=== PATIENT | female | born 1965 | race American Indian/Alaskan Native ===

== ENCOUNTER 2017-08-04 06:39 | Day surgery (SDC) | payer OTHER ==
[2017-08-04 07:45] VITALS: O2SAT 100
[2017-08-04] MEDS ORDERED: Propofol 10 mg/ml Inj (20 ML) ONE (08:26)
--- NOTE | 2017-08-04 08:26 | CP.SDSHP ---
Same Day Surgery H & P - History Proposed Procedure: COLONSCOPY Pre-Op Diagnosis: SEE NOTES - Previous Medical/Surgical History Cardiac: Hypertension, ASHD/CAD Endocrine/Metabolic: Other Neuro: TIA/CVA, Backaches Previous Surgical History: COLON POLYP REMOVAL - Allergies Allergies: Allergies Penicillins Allergy (Intermediate, Verified 08/04/17 07:01) RASH - Physical Exam Vital Signs: Vital Signs 08/04/17 07:32 Temperature 97 F L Pulse Rate 61 Respiratory 19 Rate Blood Pressure 128/83 O2 Sat by Pulse 100 Oximetry Mental Status: Alert & Oriented x3 Neuro: WNL Heart: Other Lungs: WNL GI: Other - {Optional Preform as Required} Breast: WNL Abdomen: Other Rectal: Other Integument: WNL : WNL Ortho: Other ENT: WNL - Impression Pt. Evaluated Today:Candidate for Anesthesia & Procedure: Yes - Date & Time Time: 08:27 Short Stay Discharge - Short Stay Discharge Admitting Diagnosis/Reason for Visit: P/H/ COLON POLYPS Disposition: HOME/ ROUTINE
[2017-08-04] MEDS ORDERED: Lidocaine Hydrochloride 5 ML INJ ONE (08:27)
[2017-08-04 08:50] VITALS: TEMP 97.7
[2017-08-04] MEDS ORDERED: Belladonna-Phenobarbital PO ONE (09:15)
[2017-08-04 09:32] VITALS: RESP 12
[2017-08-04 10:34] VITALS: BP 122/66; PULSE 55
== END 2017-08-04 10:33 | disposition home or self-care (01) ==
LOC: C.ENDO 06:39
PROVIDERS: ATTEND Specialist
DX: K57.30 Diverticulosis of large intestine without perforation or abscess without bleeding (principal); Z86.010 Personal history of colon polyps; I10 Essential (primary) hypertension; I25.10 Atherosclerotic heart disease of native coronary artery without angina pectoris; K52.9 Noninfective gastroenteritis and colitis, unspecified; K64.8 Other hemorrhoids; Z86.73 Personal history of transient ischemic attack (TIA), and cerebral infarction without residual deficits; Z88.0 Allergy status to penicillin
CPT/HCPCS: 45380; 88305; J2704; J3010

== ENCOUNTER 2018-11-08 10:54 | Observation (INO) | payer OTHER ==
[2018-11-08 11:46] VITALS: BMI 46.3
--- NOTE | 2018-11-08 12:03 | CP.PCM.HP ---
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 Pt sent in from Neurologist office Dr Li. Reports her seizuires began 9in january, says she gets aura and jittery, pt has inbconsitent syncope- described as generalized tonic clonic last less than 3 min but remains aware of her experience. Reports fatigue and headache for 5 min after a seizure. Pt says her sister told her she bites her tongue sometimes during seizures, reports only one episode of bladder incontince during a seizure sometime last year. Pt has been following up in clinic with Dr Li, and today was told to come in for a 48hr video. ROS: Pos+ hx of seizures, hx of CVA, Neg- CP , SOB ,FC, NV, current seizures, numbness, tingling, weakness, recent sickness PMH: CVAx2, seizures, DM2, HTN, JOCELYNN, asthma, and vertigo PSH: denies Family History: Non-Contributory Social History: Denies any tobacco, alcohol or illicit drug use Allergies: Penicillin Home Medications: As per MAR Present on Admission - Present on Admission Any Indicators Present on Admission: No Review of Systems - Review of Systems All systems: reviewed and no additional remarkable complaints except (as per HPI) Past Patient History - Infectious Disease Hx of Infectious Diseases: None - Past Medical History & Family History Past Medical History?: Yes - Past Social History Smoking Status: Never Smoked - CARDIAC Hx Hypercholesterolemia: Yes Hx Hypertension: Yes - PULMONARY Hx Chronic Obstructive Pulmonary Disease (COPD): Yes (with residual RLE weakness) - NEUROLOGICAL Hx Dizziness: No - HEENT Hx HEENT Problems: No - RENAL Hx Chronic Kidney Disease: No - ENDOCRINE/METABOLIC Hx Diabetes Mellitus Type 2: Yes - HEMATOLOGICAL/ONCOLOGICAL Hx Blood Disorders: Yes - INTEGUMENTARY Hx Dermatological Problems: No - MUSCULOSKELETAL/RHEUMATOLOGICAL Hx Unsteady Gait: No - GASTROINTESTINAL Hx Gastrointestinal Disorders: Yes - GENITOURINARY/GYNECOLOGICAL Hx Genitourinary Disorders: No - PSYCHIATRIC Hx Psychophysiologic Disorder: No Hx Substance Use: No - SURGICAL HISTORY Hx Surgeries: Yes - ANESTHESIA Hx Anesthesia: Yes Hx Anesthesia Reactions: No Hx Malignant Hyperthermia: No Meds Allergies/Adverse Reactions: Allergies Allergy/AdvReac Type Severity Reaction Status Date / Time Penicillins Allergy Intermediate RASH Verified 08/04/17 07:01 Physical Exam - Constitutional Appears: Well, Non-toxic, No Acute Distress - Head Exam Head Exam: ATRAUMATIC, NORMAL INSPECTION - Eye Exam Eye Exam: EOMI, Normal appearance, PERRL Pupil Exam: NORMAL ACCOMODATION, PERRL - ENT Exam ENT Exam: Mucous Membranes Moist - Respiratory Exam Respiratory Exam: Clear to Auscultation Bilateral. absent: Rales, Rhonchi, Wheezes - Cardiovascular Exam Cardiovascular Exam: RRR, +S1, +S2 - GI/Abdominal Exam GI & Abdominal Exam: Normal Bowel Sounds. absent: Rigid, Tenderness - Extremities Exam Extremities exam: Positive for: pedal pulses present - Back Exam Back exam: NORMAL INSPECTION - Neurological Exam Neurological exam: Alert, CN II-XII Intact, Oriented x3, Reflexes Normal Additional comments: no nystagmus noted, no facial droop, no weakness - Psychiatric Exam Psychiatric exam: Normal Affect, Normal Mood - Skin Skin Exam: Normal Color, Warm Assessment & Plan - Assessment and Plan (Free Text) Assessment: 53F pmhx of CVAs and Seizures admitted for 48hr video EEG Plan: History of Seizures - Keppra 1500mg PO BID - Trileptal 300mg PO BID - 48hr EEG - Seizure precautions - Will continue to monitor - Neuro Dr Li consulted: f/u recs History of CVAs - ASA 81 daily - Plavix 75 daily - Crestor 10mg HS - Neurology Dr Li consulted - Flexeril 5mg daily PRN for myalgias History of DM2 - ISS-Low and Accuchecks ACHS - Metformin 500 BID - f/u Lipid panel and A1C History of Asthma -Duonebs Q6 PRN - will monitor Hx of HTN - Coreg 6.125 BID - norvasc 5 daily CK pgy1
[2018-11-08] MEDS ORDERED: Dextrose 50% SYRINGE Inj (50 ml) IV PRN (12:36)
[2018-11-08] MEDS ORDERED: Glucagon Recombinant 1 mg Inj IM PRN (12:36)
[2018-11-08] MEDS ORDERED: Albuterol-Ipratrop 3 mg / 0.5 (3 ml) UD INH PRN (13:01)
--- NOTE | 2018-11-08 14:55 | CP.PCM.CON ---
History of Present Illness - History of Present Illness History of Present Illness: Neurology consult for Miss ashton, Miss Ashton is a patient of mine from clinic who is here for video eeg admission as she was having increase in seizures at home. Miss Ashton states that her seizuires began 9in january, says she gets aura and jittery, pt has inbconsitent syncope- described as generalized tonic clonic last less than 3 min but remains aware of her experience. Reports fatigue and headache for 5 min after a seizure. Pt says her sister told her she bites her tongue sometimes during seizures, reports only one episode of bladder incontince during a seizure sometime last year. [facility]and has been compliant with her meds. ROS: Pos+ hx of seizures, hx of CVA, Neg- CP , SOB ,FC, NV, current seizures, numbness, tingling, weakness, recent sickness PMH: CVAx2, seizures, DM2, HTN, JOCELYNN, asthma, and vertigo PSH: denies Family History: Non-Contributory Social History: Denies any tobacco, alcohol or illicit drug use Allergies: Penicillin Home Medications: As per [facility] Neurology exam: AAOX3. PERRL. Cn 2-12 normal. EOMI Speech fluent. Can name and repeat. Motor: 5/5 sensory: intact ft, pin, Cerebellar: no dysmetria Gait normal. Review of Systems - Constitutional Constitutional: absent: As Per HPI, Anorexia, Chills, Daytime Sleepiness, Excessive Sweating, Fatigue, Fever, Frequent Falls, Headache, Increased Appetite, Lethargy, Malaise, Night Sweats, Snoring, Sleep Apnea, Weight Gain, Weight Loss, Weakness, Other - EENT Eyes: absent: As Per HPI, Blind Spots, Blurred Vision, Change in Vision, Decreased Night Vision, Diplopia, Discharge, Dry Eye, Exophthalmos, Floaters, Irritation, Itchy Eyes, Loss of Peripheral Vision, Pain, Photophobia, Requires Corrective Lenses, Sees Flashes, Spots in Vision, Tunnel Vision, Other Visual Disturbances, Loss of Vision, Other Ears: absent: As Per HPI, Decreased Hearing, Ear Discharge, Ear Pain, Tinnitus, Abnormal Hearing, Disequilibrium, Dizziness, Other Nose/Mouth/Throat: absent: As Per HPI, Epistaxis, Nasal Congestion, Nasal Discharge, Nasal Obstruction, Nasal Trauma, Nose Pain, Post Nasal Drip, Sinus Pain, Sinus Pressure, Bleeding Gums, Change in Voice, Dental Pain, Dry Mouth, Dysphagia, Halitosis, Hoarsness, Lip Swelling, Mouth Lesions, Mouth Pain, Odynophagia, Sore Throat, Throat Swelling, Tongue Swelling, Facial Pain, Neck Pain, Neck Mass, Other - Cardiovascular Cardiovascular: absent: As Per HPI, Acrocyanosis, Chest Pain, Chest Pain at Rest, Chest Pain with Activity, Claudication, Diaphoresis, Dyspnea, Dyspnea on Exertion, Edema, Irregular Heart Rhythm, Pain Radiating to Arm/Neck/Jaw, Leg Edema, Leg Ulcers, Lightheadedness, Orthopnea, Palpitations, Paroxysmal Nocturnal Dyspnea, Pedal Edema, Radiating Pain, Rapid Heart Rate, Slow Heart Rate, Syncope, Other - Respiratory Respiratory: absent: As Per HPI, Cough, Dyspnea, Hemoptysis, Dyspnea on Exertion, Wheezing, Snoring, Stridor, Pain on Inspiration, Chest Congestion, Excessive Mucous Production, Change in Mucous Color, Pain with Coughing, Other - Neurological Neurological: absent: As Per HPI, Abnormal Gait, Abnormal Hearing, Abnormal Movements, Abnormal Speech, Behavioral Changes, Burning Sensations, Confusion, Convulsions, Disequilibrium, Dizziness, Numbness, Focal Weakness, Frequent Falls, Headaches, Lack of Coordination, Loss of Vision, Memory Loss, Paresthesias, Radicular Pain, Restless Legs, Sensory Deficit, Syncope, Tingling, Tremor, Vertigo, Weakness, Other Visual Disturbances, Other Past Patient History - Infectious Disease Hx of Infectious Diseases: None - Past Medical History & Family History Past Medical History?: Yes - Past Social History Smoking Status: Never Smoked - CARDIAC Hx Hypercholesterolemia: Yes Hx Hypertension: Yes - PULMONARY Hx Chronic Obstructive Pulmonary Disease (COPD): Yes (with residual RLE weakness) - NEUROLOGICAL Hx Dizziness: No - HEENT Hx HEENT Problems: No - RENAL Hx Chronic Kidney Disease: No - ENDOCRINE/METABOLIC Hx Diabetes Mellitus Type 2: Yes - HEMATOLOGICAL/ONCOLOGICAL Hx Blood Disorders: Yes - INTEGUMENTARY Hx Dermatological Problems: No - MUSCULOSKELETAL/RHEUMATOLOGICAL Hx Unsteady Gait: No - GASTROINTESTINAL Hx Gastrointestinal Disorders: Yes - GENITOURINARY/GYNECOLOGICAL Hx Genitourinary Disorders: No - PSYCHIATRIC Hx Psychophysiologic Disorder: No Hx Substance Use: No - SURGICAL HISTORY Hx Surgeries: Yes - ANESTHESIA Hx Anesthesia: Yes Hx Anesthesia Reactions: No Hx Malignant Hyperthermia: No Meds Allergies/Adverse Reactions: Allergies Allergy/AdvReac Type Severity Reaction Status Date / Time Penicillins Allergy Intermediate RASH Verified 08/04/17 07:01 - Medications Medications: Current Medications Albuterol/Ipratropium (Duoneb 3 Mg/0.5 Mg (3 Ml) Ud) 3 ml INH RQ6 PRN PRN Reason: Shortness of Breath Amlodipine Besylate (Norvasc) 5 mg PO DAILY [facility] Aspirin (Aspirin Chewable) 81 mg PO DAILY [facility] Carvedilol (Coreg) 6.25 mg PO BID [facility] Clopidogrel Bisulfate (Plavix) 75 mg PO DAILY [facility] Cyclobenzaprine HCl (Flexeril) 5 mg PO DAILY PRN PRN Reason: Muscle spasm Dextrose (Dextrose 50% Inj) 0 ml IV STAT PRN; Protocol PRN Reason: Hypoglycemia Protocol Dextrose (Glutose 15) 0 gm PO ONCE PRN; Protocol PRN Reason: Hypoglycemia Protocol Ferrous Sulfate (Feosol) 325 mg PO DAILY [facility] Glucagon (Glucagen Diagnostic Kit) 0 mg IM STAT PRN; Protocol PRN Reason: Hypoglycemia Protocol Dextrose (Dextrose 5% In Water 1000 Ml) 1,000 mls @ 0 mls/hr IV .Q0M PRN; Protocol PRN Reason: Hypoglycemia Protocol Insulin Human Regular (Novolin R) 0 unit SC ACHS [facility]; Protocol Levetiracetam (Keppra) 1,500 mg PO BID [facility] Meclizine HCl (Antivert) 25 mg PO BID PRN PRN Reason: Nausea/Vomiting Metformin HCl (Glucophage) 500 mg PO BIDCC [facility] Oxcarbazepine (Trileptal) 300 mg PO BID [facility] Ranolazine (Ranexa) 500 mg PO BID [facility] Rosuvastatin Calcium (Crestor) 10 mg PO HS [facility] Results - Vital Signs Recent Vital Signs: Last Vital Signs Temp 98.0 F 11/08/18 12:00 Pulse 78 11/08/18 12:00 Resp 18 11/08/18 12:00 BP 131/80 11/08/18 12:00 Pulse Ox 100 11/08/18 12:00 - Labs Labs: Laboratory Results - last 24 hr 11/08/18 12:55 POC Glucose (mg/dL) 93 Assessment & Plan - Assessment and Plan (Free Text) Assessment: 53 yr old woman with 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 I have admitted her for evaluation of these events and possibel increase in interictal discharges. Plan: 1. VEEG 24 hours 2. continue all meds 3. Seizure precautions. Thank you Dr. Li Neurology
[2018-11-08 17:30] LABS: HDL CHOLESTEROL 53 mg/dL (30-70)
[2018-11-08 17:42] LABS: LDL CHOLESTEROL 48 mg/dL (0-129)
[2018-11-08] MEDS: Ranolazine 500 mg Extended Release Tablets PO SCH (18:20)
[2018-11-08] MEDS: (Novolin R) Insulin Human Regular 100 units/ml vial SC SCH ×2 (20:38→21:38)
[2018-11-09 06:42] LABS: INR 1.1; PROTHROMBIN TIME 11.5 SECONDS (9.7-12.2)
[2018-11-09 07:14] LABS: ALB/GLOB RATIO 1.4 (1.0-2.1); ALBUMIN 3.3 g/dL (3.5-5.0); BLOOD UREA NITROGEN 16 mg/dL (7-17); CALCIUM 8.5 mg/dl (8.6-10.4); GFR NON-AFRICAN AMERICAN > 60
[2018-11-09 07:19] LABS: ALT/SGPT < 6 U/L (9-52); AST/SGOT 31 U/L (14-36)
[2018-11-09 07:26] LABS: HEMOGLOBIN 7.9 g/dL (11.0-16.0); MEAN CELL VOLUME 69.7 fL (81.0-99.0); MEAN CORPUSCULAR HEMOGLOBIN 21.3 pg (27.0-31.0); MEAN CORPUSCULAR HGB CONC 30.5 g/dL (33.0-37.0); MEAN PLATELET VOLUME 7.9 fL (7.2-11.7); RBC 3.69 Mil/uL (3.80-5.20); RED CELL DISTRIBUTION WIDTH 17.3 % (11.5-14.5)
[2018-11-09] MEDS: (Novolin R) Insulin Human Regular 100 units/ml vial SC SCH ×2 (07:41→11:37)
[2018-11-09 08:00] VITALS: RESP 20; TEMP 97.9; O2SAT 95
[2018-11-09] MEDS: Ranolazine 500 mg Extended Release Tablets PO SCH (09:47)
[2018-11-09 09:53] VITALS: BP 126/92
[2018-11-09 09:57] LABS: MONO # 0.3 K/uL (0.0-0.8); NEUT # 3.5 K/uL (1.8-7.0)
[2018-11-09 09:58] LABS: BASO # 0.1 K/uL (0.0-0.2); EOS # 0.1 K/uL (0.0-0.7)
[2018-11-09 13:07] VITALS: PULSE 79
--- NOTE | 2018-11-09 14:21 | CP.PCM.DIS ---
Provider - Provider Date of Admission: 11/08/18 10:54 Attending physician: Jefe Rose Jr, MD Consults: 11/08/18 11:53 Neurology Consult Routine Comment: Consulting Provider: Daniel Li Consulting Physician: Daniel Li Reason for Consult: seizure disorder Time Spent in preparation of Discharge (in minutes): 180 Diagnosis - Discharge Diagnosis (1) History of seizure Status: Chronic (2) History of CVA (cerebrovascular accident) Status: Chronic (3) Asthma Status: Chronic Priority: Medium (4) Diabetes mellitus Status: Chronic Priority: Medium (5) HTN (hypertension) Status: Chronic Priority: Medium Hospital Course - Lab Results Lab Results: Most Recent Lab Values WBC 6.0 K/uL (4.8-10.8) 11/09/18 06:19 RBC 3.69 Mil/uL (3.80-5.20) L 11/09/18 06:19 Hgb 7.9 g/dL (11.0-16.0) L 11/09/18 06:19 Hct 25.7 % (34.0-47.0) L 11/09/18 06:19 MCV 69.7 fL (81.0-99.0) L 11/09/18 06:19 MCH 21.3 pg (27.0-31.0) L 11/09/18 06:19 MCHC 30.5 g/dL (33.0-37.0) L 11/09/18 06:19 RDW 17.3 % (11.5-14.5) H 11/09/18 06:19 Plt Count 335 K/uL (130-400) 11/09/18 06:19 MPV 7.9 fL (7.2-11.7) 11/09/18 06:19 Neut % (Auto) 58.0 % (50.0-75.0) 11/09/18 06:19 Lymph % (Auto) 33.0 % (20.0-40.0) 11/09/18 06:19 [place] % (Auto) 5.0 % (0.0-10.0) 11/09/18 06:19 Eos % (Auto) 2.0 % (0.0-4.0) 11/09/18 06:19 Baso % (Auto) 2.0 % (0.0-2.0) 11/09/18 06:19 Neut # (Auto) 3.5 K/uL (1.8-7.0) 11/09/18 06:19 Lymph # (Auto) 2.0 K/uL (1.0-4.3) 11/09/18 06:19 [place] # (Auto) 0.3 K/uL (0.0-0.8) 11/09/18 06:19 Eos # (Auto) 0.1 K/uL (0.0-0.7) 11/09/18 06:19 Baso # (Auto) 0.1 K/uL (0.0-0.2) 11/09/18 06:19 PT 11.5 SECONDS (9.7-12.2) 11/09/18 06:19 INR 1.1 11/09/18 06:19 APTT 30 SECONDS (21-34) 11/09/18 06:19 Sodium 138 mmol/L (132-148) 11/09/18 06:19 Potassium 4.7 mmol/L (3.6-5.2) 11/09/18 06:19 Chloride 106 mmol/L (98-107) 11/09/18 06:19 Carbon Dioxide 26 mmol/L (22-30) 11/09/18 06:19 Anion Gap 10 (10-20) 11/09/18 06:19 BUN 16 mg/dL (7-17) 11/09/18 06:19 Creatinine 0.7 mg/dL (0.7-1.2) 11/09/18 06:19 Est GFR ( Amer) > 60 11/09/18 06:19 Est GFR (Non-Af Amer) > 60 11/09/18 06:19 POC Glucose (mg/dL) 100 mg/dL (65-110) 11/09/18 11:20 Random Glucose 82 mg/dL (65-105) 11/09/18 06:19 Hemoglobin A1c 5.8 % (4.2-6.5) 11/08/18 16:59 Calcium 8.5 mg/dl (8.6-10.4) L 11/09/18 06:19 Phosphorus 4.0 mg/dL (2.5-4.5) 11/09/18 06:19 Magnesium 2.0 mg/dL (1.6-2.3) 11/09/18 06:19 Total Bilirubin 0.4 mg/dL (0.2-1.3) 11/09/18 06:19 AST 31 U/L (14-36) 11/09/18 06:19 ALT < 6 U/L (9-52) L 11/09/18 06:19 Alkaline Phosphatase 53 U/L (38-126) 11/09/18 06:19 Total Protein 5.6 g/dL (6.3-8.3) L 11/09/18 06:19 Albumin 3.3 g/dL (3.5-5.0) L 11/09/18 06:19 Globulin 2.4 gm/dL (2.2-3.9) 11/09/18 06:19 Albumin/Globulin Ratio 1.4 (1.0-2.1) 11/09/18 06:19 Triglycerides 69 mg/dL (0-149) 11/08/18 16:59 Cholesterol 108 mg/dL (0-199) 11/08/18 16:59 LDL Cholesterol Direct 48 mg/dL (0-129) 11/08/18 16:59 HDL Cholesterol 53 mg/dL (30-70) 11/08/18 16:59 - Hospital Course Hospital Course: On admission: 53F 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 Pt sent in from Neurologist office Dr Li. Reports her seizuires began January, says she gets aura and jittery, pt has inbconsitent syncope- described as generalized tonic clonic last less than 3 min but remains aware of her experience. Reports fatigue and headache for 5 min after a seizure. Pt says her sister told her she bites her tongue sometimes during seizures, reports only one episode of bladder incontince during a seizure sometime last year. Pt has been following up in clinic with Dr Li, and today was told to come in for a 48hr video. On hospitalization Patient admitted for video monitor EGD. Neuro Dr Li on board. As per neuro, EGD shows normal results. Patient placed on Keppra and trilepta. History of CVA, HTN, asthma and DM managed with home medications. On discharged THe following instruction were given to patient. Patient stable to discharge as per Dr Li and Dr Rose Patient to continue home medications as indicated Patient to follow up with primary medical doctor for medication refill and management Patient is to follow up with Dr Li in one month for management of epilepsy - Date & Time of H&P Date of H&P: 11/08/18 Time of H&P: 12:02 Discharge Exam - Head Exam Head Exam: ATRAUMATIC, NORMAL INSPECTION - Eye Exam Eye Exam: EOMI, Normal appearance - Respiratory Exam Respiratory Exam: Clear to PA & Lateral, NORMAL BREATHING PATTERN, UNREMARKABLE - Cardiovascular Exam Cardiovascular Exam: REGULAR RHYTHM, +S1, +S2 - GI/Abdominal Exam GI & Abdominal Exam: Normal Bowel Sounds, Unremarkable - Extremities Exam Extremities exam: full ROM - Back Exam Back exam: NORMAL INSPECTION - Neurological Exam Neurological exam: Alert, CN II-XII Intact, Normal Gait, Oriented x3 - Psychiatric Exam Psychiatric exam: Normal Affect, Normal Mood - Skin Skin Exam: Dry, Intact, Normal Color, Warm Discharge Plan - Follow Up Plan Condition: GOOD Disposition: HOME/ ROUTINE Instructions: Seizures, Adult (DC) Additional Instructions: Patient stable to discharge as per Dr Li and Dr Rose Patient to continue home medications as indicated Patient to follow up with primary medical doctor for medication refill and management Patient is to follow up with Dr Li in one month for management of epilepsy Referrals: Jefe Rose Jr., MD [Medical Doctor] - Daniel Li MD [Staff Provider] -
--- NOTE | 2018-11-09 14:32 | PCM.VEEG ---
Video EEG - Procedure Start Date: 11/09/18
== END 2018-11-09 15:04 | disposition home or self-care (01) ==
LOC: C.5S 10:54
PROVIDERS: ADMIT Internal Medicine; ATTEND Internal Medicine
DX: G40.209 Localization-related (focal) (partial) symptomatic epilepsy and epileptic syndromes with complex partial seizures, not intractable, without status epilepticus (principal); E11.9 Type 2 diabetes mellitus without complications; E78.00 Pure hypercholesterolemia, unspecified; G47.33 Obstructive sleep apnea (adult) (pediatric); I10 Essential (primary) hypertension; J44.9 Chronic obstructive pulmonary disease, unspecified; I69.341 Monoplegia of lower limb following cerebral infarction affecting right dominant side
CPT/HCPCS: 36415; 80053; 80061; 80177; 82948; 83036; 83735; 84100; 85025; 85610; 85730; 97116; 97161; G0378; G8978; G8979